=== PATIENT | male | born 1965 | race Caucasian/White ===

== ENCOUNTER 2018-01-04 13:53 | Day surgery (SDC) | payer OTHER ==
[~2018-01-04 13:53] MED LIST: PROPOFOL 200 MG INJ
[2018-01-04] MEDS ORDERED: PROPOFOL 60 ML (15:27)
[2018-01-04] MEDS ORDERED: LIDOCAINE 2% (SDV) 5 ML INJ (15:27)
== END 2018-01-04 16:26 | disposition home or self-care (01) ==
LOC: GIL 13:53
DX: Z12.11 Encounter for screening for malignant neoplasm of colon (principal)
CPT/HCPCS: 45378